=== PATIENT | female | born 1990 ===

== ENCOUNTER 2017-01-27 21:42 | Emergency (ER) | payer OTHER ==
[2017-01-27 22:26] VITALS: BMI 25.9
[2017-01-27] MEDS ORDERED: Lactated Ringer's 1,000 ML IV SCH (22:30)
[2017-01-27 23:23] LABS: RBC URINE 14 /hpf (0-3); URINE BACTERIA RARE (<OCC); URINE BILIRUBIN NEGATIVE (NEGATIVE); URINE BLOOD NEGATIVE (NEGATIVE); URINE COLOR Yellow (YELLOW); URINE GLUCOSE (UA) NORMAL (Normal); URINE KETONE 1+ mg/dL (NEGATIVE); URINE LEUKOCYTE ESTERASE NEG Leu/uL (Negative); URINE PROTEIN NEGATIVE (NEGATIVE); URINE UROBILINOGEN NORMAL mg/dL (0.2-1.0); WBC URINE 4 /hpf (0-5)
== END 2017-01-27 23:32 | disposition home or self-care (01) ==
LOC: C.EROB 21:42
DX: O47.03 False labor before 37 completed weeks of gestation, third trimester (principal); Z3A.33 33 weeks gestation of pregnancy
CPT/HCPCS: 81001; 99283; J7120

== ENCOUNTER 2017-09-05 06:12 | Emergency (ER) | payer OTHER ==
[2017-09-05 06:12] VITALS: BMI 25.9
[2017-09-05 06:17] VITALS: BP 118/78; PULSE 80; RESP 14; TEMP 98.6; O2SAT 97
--- NOTE | 2017-09-05 06:51 | C.PDOC ---
History Of Present Illness Tamia Chavez is a 26 year old female, with no past medical history, who presents to the emergency department complaining of intermittent cough and fever onset for 1 month. Mother came to the ER with daughter who also presents with fever. She denies any chills, nausea or vomit. No further medical complaints. PMD: None provided. Chief Complaint (Nursing): Cough, Cold, Congestion History Per: Patient History/Exam Limitations: no limitations Onset/Duration Of Symptoms: Days (x1 month), Intermittent Episodes Current Symptoms Are (Timing): Still Present Associated Symptoms: Fever, Cough. denies: Nausea, Vomiting, Diarrhea Ear Symptoms: Bilateral: None Past Medical History Reviewed: Historical Data, Nursing Documentation, Vital Signs Vital Signs: Last Vital Signs Temp 98.6 F 09/05/17 06:15 Pulse 80 09/05/17 06:15 Resp 14 09/05/17 06:15 BP 118/78 09/05/17 06:15 Pulse Ox 97 09/05/17 06:56 - Medical History PMH: Kidney Stones Surgical History: Tonsillectomy - [facility] Procedures DELIVERY OF PRODUCTS OF CONCEPTION, EXTERNAL APPROACH (03/12/17) MONITORING NOS (10/29/14) MANUAL ASSIST DELIV NEC (10/29/14) MEASUREMENT OF POC, CARDIAC RATE, MICA SPREADER APPROACH (03/12/17) Family History: States: Unknown Family Hx - Social History Hx Tobacco Use: No Hx Alcohol Use: Yes Hx Substance Use: No - Immunization History Hx Tetanus Toxoid Vaccination: Yes Hx Influenza Vaccination: No Hx Pneumococcal Vaccination: No Review Of Systems Except As Marked, All Systems Reviewed And Found Negative. Constitutional: Positive for: Fever. Negative for: Chills Respiratory: Positive for: Cough (intermittent) Gastrointestinal: Negative for: Nausea, Vomiting Physical Exam - Physical Exam Skin: Normal Color, Warm, Dry Head: Atraumatic, Normacephalic Eye(s): bilateral: Normal Inspection, PERRL, EOMI Ear(s): Bilateral: Normal Nose: Normal Throat: Normal Neck: Normal, Normal ROM, Supple Cardiovascular: Rhythm Regular Respiratory: Normal Breath Sounds, No Accessory Muscle Use Gastrointestinal/Abdominal: Normal Exam, Soft, No Tenderness Extremity: Normal ROM, No Deformity, No Swelling Neurological/Psych: Oriented x3 (awake and alert) ED Course And Treatment O2 Sat by Pulse Oximetry: 97 (RA) Pulse Ox Interpretation: Normal Medical Decision Making Medical Decision Making: Initial Impression: Fever and cough Initial Plan: --Chest two views (PA/LAT) [RAD] --Reevaluation Disposition - Disposition Disposition: HOME/ ROUTINE Disposition Time: 07:03 Condition: STABLE Forms: [facility] (Malagasy) - Clinical Impression Clinical Impression: Bronchitis - Scribe Statement Pranay Lopes All medical record entries made by the Scribe were at my direction and personally dictated by me. I have reviewed the chart and agree that the record accurately reflects my personal performance of the history, physical exam, medical decision making, and the department course for this patient. I have also personally directed, reviewed, and agree with the discharge instructions and disposition. Physician Patient Turnover Patient Signed Over To: Elise Karimi Handoff Comments: CXR, dispo
[2017-09-05] MEDS ORDERED: guaiFENesin 100 mg/5 ml Syrup UD PO STA (07:43)
[2017-09-05] MEDS ORDERED: guaiFENesin 200 mg/10 ml Syrup UD ONE (08:02)
== END 2017-09-05 08:16 | disposition home or self-care (01) ==
LOC: C.ER 06:12
DX: J40 Bronchitis, not specified as acute or chronic (principal)